=== PATIENT | female | born 1970 | race Caucasian/White ===

== ENCOUNTER → 2018-10-26 | Outpatient (CLI) | payer OTHER, MEDICARE ==
[~2018-10-26] MED LIST: ALBU.083IS; ALBU.083IS IH; ALBU90OI; ALBU90OI INH; ALBU90OI61; ALPR.25 PO; AMIT25; AMIT50 PO; AMITRIPTYLINE; AZIT250 PO; BECLOI16.8 IH; CIPRO500 MG PO; ESTRADIOL1 MG PO; Flomax0.4 MG PO; HYDACE10B; HYDACE10B PO; HYDACE5; IRON; IRON GLYCINATE; LEVSOD75 PO; LEVSOD88; LEVSOD88 PO; MELO7.5; MELO7.5 PO; MONT10T PO; Mobic15 MG PO; ONDA4 PO; OXYACE5T PO; PROBIOTIC1 EAC1 PO; PROM25 PO; Percocet 5-3251 EACH PO; SERT100; SERT100 PO; SERT50; SULTRIEL PO; TAMS.4ER PO; TIZA4 PO; TRAM50; TRAM50 PO; TYLENOL; Ventolin Soln3 ML INH; [UNRECOGNIZED DRUG - OTHER]
== END | disposition home or self-care (01) ==
LOC: LAB SHORT 15:52 → PLD 15:52
DX: D23.62 Other benign neoplasm of skin of left upper limb, including shoulder (principal)
CPT/HCPCS: 88305

== ENCOUNTER 2020-08-30 07:50 | Day surgery (SDC) | payer OTHER, MEDICARE ==
[~2020-08-30] VITALS: Ht 172.7 cm; Wt 103.6 kg
[~2020-08-30 07:50] MED LIST changes: +ALLERCLEAR10 MG PO; +CYAN500 PO; +EUTHYROX50 MCG PO; +GABA100 PO; +LINZESS72 MCG PO
== END 2020-08-30 10:03 | disposition home or self-care (01) ==
LOC: ORSCSDS 07:50
PROVIDERS: Internal Medicine Gastroenterology
PROC: 0DBK8ZX Excision of Ascending Colon, Via Natural or Artificial Opening Endoscopic, Diagnostic (ICD-10-PCS; principal; 2020-08-30 09:15)
PROC: 0DBM8ZX Excision of Descending Colon, Via Natural or Artificial Opening Endoscopic, Diagnostic (ICD-10-PCS; principal; 2020-08-30 09:15)
PROC: 0DBH8ZX Excision of Cecum, Via Natural or Artificial Opening Endoscopic, Diagnostic (ICD-10-PCS; principal; 2020-08-30 09:15)
DX: Z12.11 Encounter for screening for malignant neoplasm of colon (principal); D12.2 Benign neoplasm of ascending colon; D12.0 Benign neoplasm of cecum; K63.5 Polyp of colon; K57.30 Diverticulosis of large intestine without perforation or abscess without bleeding; K64.1 Second degree hemorrhoids; Z79.899 Other long term (current) drug therapy; E03.9 Hypothyroidism, unspecified; J45.909 Unspecified asthma, uncomplicated; M79.7 Fibromyalgia
CPT/HCPCS: 88305; J2704; J7120

== ENCOUNTER 2024-06-08 08:53 | Day surgery (SDC) | payer MEDICARE, OTHER ==
[~2024-06-08] VITALS: Ht 167.6 cm; Wt 98.2 kg
[2024-06-08] VITALS (21 sets, daily range): BP systolic 120–159; BP diastolic 68–112
[~2024-06-08 08:53] MED LIST changes: +AMOCLA875 PO; +ESTRADIOL1 M1 PO; +HYDROCODONE-AC1 EAC7 PO; +LISI20 PO; +Lactated Ringer's 1,000 ML IV SCH
--- NOTE | 2024-06-08 09:22 | NUR ---
PT TO [facility] FOR COLONOSCOPY. CHART REVIEWED. PLAN OF CARE DISCUSSED. PT NPO. PT HAS RIDE HOME.
[2024-06-08] MEDS ORDERED: propofoL 40 ML IV ONE (09:53)
--- NOTE | 2024-06-08 10:10 | NUR ---
06/08/24 1010 Stephie Maldonado CONFIRMED AND REVIEWED H&P, MEDCICATIONS, ALLERGIES, MEDICAL HISTORY, RESPIRATORY HISTORY, VITAL SIGNS, 3-LEAD EKG, CONSENTS, AND PHYSICIAN ORDERS. PATIENT CONFIRMS NPO STATUS AND AGREES WITH SCHEDULED PROCEDURE. MONITOR INTACT WITH CONTINUOUS PULSE OXIMETRY, CAPNOGRAPHY, 3-LEAD EKG, INTERMITTENT BP. SUPPLEMENTAL O2 TO BE TITRATED THROUGHOUT PROCEDURE TO MAINTAIN O2 SATURATION ABOVE 90%. PATIENT DETERMINED TO BE ASA APPROPRIATE FOR PROPOFOL SEDATION PRIOR TO START OF PROCEDURE BY DR. SORENSON
--- NOTE | 2024-06-08 10:38 | NUR ---
PT TO DAY SURGERY STEP DOWN FROM COLONOSCOPY; BEDSIDE REPORT RECEIVED. PT IS AWAKE AND ORIENTED, BUT SLEEPY; ABLE TO MOVE SELF IN BED. NO COMPLAINTS.
--- NOTE | 2024-06-08 11:00 | NUR ---
PT DECLINES PO FLUIDS
--- NOTE | 2024-06-08 11:04 | NUR ---
Discharge instructions reviewed with patient. Patient verbalizes understanding. Copy given to patient to take home. Patient States Post-Procedure ride home has been arranged.
--- NOTE | 2024-06-08 11:11 | NUR ---
Patient up to Ambulate independently. Gait steady. Discharged via wheelchair to private car for ride home.
== END 2024-06-08 11:12 | disposition home or self-care (01) ==
LOC: ORSCMMR 08:53 → ORD 10:30 → ORSCMMR 11:12
PROVIDERS: Internal Medicine Gastroenterology
PROC: 0DJD8ZZ Inspection of Lower Intestinal Tract, Via Natural or Artificial Opening Endoscopic (ICD-10-PCS; principal; 2024-06-08 10:30)
DX: Z12.11 Encounter for screening for malignant neoplasm of colon (principal); Z86.0101 Personal history of adenomatous and serrated colon polyps; I10 Essential (primary) hypertension; K57.30 Diverticulosis of large intestine without perforation or abscess without bleeding; E03.9 Hypothyroidism, unspecified; F32.A Depression, unspecified; M79.7 Fibromyalgia; M62.89 Other specified disorders of muscle; Z79.899 Other long term (current) drug therapy
CPT/HCPCS: J2704; J7120

== ENCOUNTER 2024-09-27 07:55 | Day surgery (SDC) | payer OTHER, MEDICARE ==
[~2024-09-27 07:55] MED LIST changes: -Lactated Ringer's 1,000 ML IV SCH
== END 2024-09-27 23:00 | disposition home or self-care (01) ==
LOC: CT 07:55
DX: I42.2 Other hypertrophic cardiomyopathy (principal)
CPT/HCPCS: 75574; Q9967